=== PATIENT | male | born 1940 | race African-American/Black ===

== ENCOUNTER 2020-07-19 10:02 | Emergency (ER) | payer BC ==
[~2020-07-19] VITALS: Ht 177.8 cm; Wt 86.2 kg
--- NOTE | 2020-07-19 10:14 | NUR ---
PT IS IN ROOM #2B. DR ORTIZ EVALUATED THE PT.
[2020-07-19] MEDS ORDERED: ASPI81TA31 PO (10:16)
[2020-07-19] MEDS ORDERED: SIMV-49 PO (10:16)
[2020-07-19] MEDS ORDERED: METO50TA16 PO (10:16)
[2020-07-19] MEDS ORDERED: VALS1TAB4 PO (10:16)
[2020-07-19] MEDS ORDERED: OMEP20CA15 PO (10:16)
[2020-07-19] MEDS ORDERED: MULT1TAB69 PO (10:16)
[2020-07-19] MEDS ORDERED: FERR325T28 PO (10:16)
[2020-07-19] MEDS ORDERED: HYDROCODONE/APAP 10-325 MG TABLET PO ONE (11:00)
[2020-07-19] MEDS ORDERED: HYDROCODONE/APAP 10-325 MG TABLET ONE (11:02)
[2020-07-19 11:18] VITALS: BP 131/78
--- NOTE | 2020-07-19 11:18 | NUR ---
pt was d/c'D to home. d/c instructions given to the pt.
== END 2020-07-19 11:20 | disposition home or self-care (01) ==
LOC: ER 10:02
DX: M17.11 Unilateral primary osteoarthritis, right knee (principal)
CPT/HCPCS: A4663

== ENCOUNTER 2022-10-29 21:02 | Emergency (ER) | payer BC, MEDICAID ==
[~2022-10-29] VITALS: Ht 172.7 cm; Wt 78.9 kg
[~2022-10-29 21:02] MED LIST: ASPI81TA31 PO; FERR325T28 PO; METO50TA16 PO; MULT1TAB70 PO; OMEP20CA15 PO; SIMV-49 PO; VALS1TAB4 PO
--- NOTE | 2022-10-29 22:35 | NUR ---
A/O x3. NAD noted. Son at bedside.
--- NOTE | 2022-10-29 22:40 | NUR ---
Dr. Davidson at bedside. MSE in progress.
[2022-10-29 23:00] LABS: HEMATOCRIT 38.5 % (36.7-47.1); MEAN CORPUSCULAR HEMOGLOBIN 29.4 uug (23.8-33.4); MEAN CORPUSCULAR VOLUME 85.6 fL (73.0-96.2); PLATELET COUNT (AUTO) 144 K/uL (152-348)
[2022-10-29 23:01] LABS: *BILIRUBIN,URIN NEGATIVE (NEGATIVE); *BLOOD, URINE 3+ (NEGATIVE); *CLARITY,URINE SLIGHTLY CLOUDY (CLEAR); *COLOR,URINE YELLOW (YELLOW); *KETONES,URINE NEGATIVE (NEGATIVE); *UROBILINOGEN,URINE 0.2 E.U./dl (NORMAL); LEUKOCYTE ESTERASE ,URINE 1+ (NEGATIVE); NITRITE, URINE NEGATIVE (NEGATIVE); PH,URINE 5.5 (5.0-8.0); UGLUCOSE NEGATIVE (NEGATIVE)
[2022-10-29 23:26] LABS: CARBON DIOXIDE 26 mmol/L (21-32); CHLORIDE 97 mmol/L (98-107); CREATININE 1.6 mg/dL (0.6-1.3); GLUCOSE 130 mg/dL (74-106); POTASSIUM 3.2 mmol/L (3.5-5.1); UREA NITROGEN, BLOOD 17 mg/dL (7-18)
[2022-10-29 23:39] LABS: BACTERIA,URINE MODERATE /HPF (NONE SEEN); RBC,URINE 50-80 /HPF (0-3); SQUAMOUS EPITHELIAL CELL,UR MODERATE /HPF (NONE SEEN); WBC,URINE 20-50 /HPF (0-3)
[2022-10-29] MEDS ORDERED: POTASSIUM CHLORIDE 20 MEQ TAB.PRT.SR ONE (23:51)
[2022-10-29] MEDS ORDERED: CEFTRIAXONE /D5W 50ML IVPB **ER PYXIS IV ONE (23:51)
[2022-10-30] MEDS ORDERED: CEFTRIAXONE 1 G in IV DEXTROSE 5% 50 ML IV ONE ×2
[2022-10-30] MEDS ORDERED: POTASSIUM CHLORIDE 20 MEQ TAB.PRT.SR PO ONE
[2022-10-30] MEDS ORDERED: IV NORMAL SALINE 1000 ML BAG IV ONE
[2022-10-30] MEDS ORDERED: CEFP200T14 PO (01:16)
--- NOTE | 2022-10-30 01:37 | NUR ---
Patient discharged to home in stable condition with son. A/O x3. NAD noted. All belongins with patient and son. Written and verbal after care instructions given. Patient verbalizes understanding of instructions. Stressed follow up or return to ER for worsening s/s.
[2022-10-30 01:40] VITALS: BP 120/95
== END 2022-10-30 01:41 | disposition home or self-care (01) ==
LOC: ER 21:02
DX: N39.0 Urinary tract infection, site not specified (principal); R31.9 Hematuria, unspecified; E87.6 Hypokalemia; K21.9 Gastro-esophageal reflux disease without esophagitis; E78.5 Hyperlipidemia, unspecified; I10 Essential (primary) hypertension; Z79.899 Other long term (current) drug therapy; Z79.82 Long term (current) use of aspirin; Z95.1 Presence of aortocoronary bypass graft; Z96.642 Presence of left artificial hip joint
CPT/HCPCS: 99284; 96365; 80048; 81001; 85025; 36415; 87040; J0696; J7040; A4663

== ENCOUNTER 2023-05-09 01:09 | Emergency (ER) | payer BC, OTHER ==
[~2023-05-09] VITALS: Ht 175.3 cm; Wt 77.1 kg
[~2023-05-09 01:09] MED LIST changes: +CEFP200T14 PO
--- NOTE | 2023-05-09 01:35 | NUR ---
Dr. Tena in room at bedside. MSE in progress.
[2023-05-09 02:17] LABS: HEMATOCRIT 36.8 % (36.7-47.1); MEAN CORPUSCULAR HEMOGLOBIN 28.3 uug (23.8-33.4); MEAN CORPUSCULAR VOLUME 83.1 fL (73.0-96.2); PLATELET COUNT (AUTO) 224 K/uL (152-348)
[2023-05-09 02:31] LABS: CARBON DIOXIDE 26 mmol/L (21-32); CHLORIDE 101 mmol/L (98-107); CREATININE 1.1 mg/dL (0.6-1.3); GLUCOSE 114 mg/dL (74-106); POTASSIUM 3.7 mmol/L (3.5-5.1); UREA NITROGEN, BLOOD 12 mg/dL (7-18)
[2023-05-09] MEDS ORDERED: CYANOCOBALAMIN 1000 MCG/ML VIAL ONE (03:28)
[2023-05-09] MEDS ORDERED: CYANOCOBALAMIN 1000 MCG/ML VIAL IM ONE (03:30)
--- NOTE | 2023-05-09 03:35 | NUR ---
Patient discharged to home in stable condition. Written and verbal after care instructions given. Patient verbalizes understanding of instructions. Stressed follow up or return to ER for worsening s/s. Patient is a/ox4, NAD noted. patient is accompanied by his son via wheelchair
[2023-05-09 03:37] VITALS: BP 130/78
== END 2023-05-09 03:37 | disposition home or self-care (01) ==
LOC: ER 01:18
DX: S60.562A Insect bite (nonvenomous) of left hand, initial encounter (principal); S60.561A Insect bite (nonvenomous) of right hand, initial encounter; F09 Unspecified mental disorder due to known physiological condition; E78.00 Pure hypercholesterolemia, unspecified; K21.9 Gastro-esophageal reflux disease without esophagitis; Z79.82 Long term (current) use of aspirin; Z79.899 Other long term (current) drug therapy; W57.XXXA Bitten or stung by nonvenomous insect and other nonvenomous arthropods, initial encounter; Y93.89 Activity, other specified; Y92.89 Other specified places as the place of occurrence of the external cause; Y99.8 Other external cause status
CPT/HCPCS: 99283; 80048; 82607; 85025; 36415; 96372; J3420; A4663